=== PATIENT | female | born 1985 | race Native Hawaiian/Other Pacific Islander ===

== ENCOUNTER 2019-03-24 17:42 | Emergency (ER) | payer OTHER ==
[~2019-03-24] VITALS: Ht 167.6 cm; Wt 86.2 kg
[2019-03-24 20:11] VITALS: BP 128/74; TEMP 98.7
== END 2019-03-24 20:11 | disposition home or self-care (01) ==
LOC: ED 17:42
DX: N39.0 Urinary tract infection, site not specified (principal); M54.41 Lumbago with sciatica, right side; F15.10 Other stimulant abuse, uncomplicated; F12.10 Cannabis abuse, uncomplicated
CPT/HCPCS: 80307; 81000; 81025; 87086; 87088; 96372; 99283; J1885

== ENCOUNTER 2019-06-15 08:18 | Emergency (ER) | payer OTHER ==
[~2019-06-15] VITALS: Ht 167.6 cm; Wt 86.2 kg
[2019-06-15 08:20] VITALS: TEMP 97.9
[2019-06-15 09:45] VITALS: BP 114/82
== END 2019-06-15 09:46 | disposition home or self-care (01) ==
LOC: ED 08:18
DX: R07.89 Other chest pain (principal); N39.0 Urinary tract infection, site not specified; W22.8XXA Striking against or struck by other objects, initial encounter; Y93.55 Activity, bike riding; Y92.89 Other specified places as the place of occurrence of the external cause
CPT/HCPCS: 80307; 81000; 81025; 87086; 87088; 96372; 99283; J1885

== ENCOUNTER 2019-07-10 18:36 | Emergency (ER) | payer OTHER ==
[~2019-07-10] VITALS: Ht 157.5 cm; Wt 86.2 kg
[2019-07-10 20:24] LABS: PLATELET COUNT 326 K/uL (152-353)
[2019-07-10 20:29] LABS: POTASSIUM 4.3 mmol/L (3.6-5.2)
[2019-07-10 23:58] VITALS: BP 108/62; TEMP 98.2
== END 2019-07-10 23:58 | disposition home or self-care (01) ==
LOC: ED 18:36
PROVIDERS: Emergency Medicine
DX: K52.89 Other specified noninfective gastroenteritis and colitis (principal); N39.0 Urinary tract infection, site not specified; F12.10 Cannabis abuse, uncomplicated; F15.10 Other stimulant abuse, uncomplicated
CPT/HCPCS: 36415; 80053; 80307; 81000; 81025; 82150; 83690; 85027; 87086; 87088; 87502; 87651; 96361; 96374; 99284; J1885; J2405

== ENCOUNTER 2019-10-30 10:42 | Outpatient (CLI) | payer OTHER | END 2019-10-30 22:45 | disposition home or self-care (01) | LOC: RAD 10:42 | DX: L03.011 Cellulitis of right finger (principal) ==

== ENCOUNTER 2020-01-24 08:56 | Emergency (ER) | payer OTHER ==
[~2020-01-24] VITALS: Ht 157.5 cm; Wt 81.2 kg
[2020-01-24 09:56] VITALS: BP 122/90; TEMP 98.7
== END 2020-01-24 10:00 | disposition home or self-care (01) ==
LOC: ED 08:56
DX: M54.12 Radiculopathy, cervical region (principal); W86.0XXA Exposure to domestic wiring and appliances, initial encounter; Y92.89 Other specified places as the place of occurrence of the external cause
CPT/HCPCS: 96372; 99283; J1885

== ENCOUNTER 2020-02-02 18:52 | Emergency (ER) | payer OTHER ==
[~2020-02-02] VITALS: Ht 157.5 cm; Wt 81.2 kg
[2020-02-02 20:08] LABS: PLATELET COUNT 400 K/uL (152-353)
[2020-02-02 20:36] LABS: POTASSIUM 4.6 mmol/L (3.6-5.2); SODIUM 139 mmol/L (136-145)
[2020-02-02 20:47] VITALS: BP 138/88; TEMP 98.7
== END 2020-02-02 20:53 | disposition home or self-care (01) ==
LOC: ED 18:52
PROVIDERS: Family Medicine
DX: F41.8 Other specified anxiety disorders (principal)
CPT/HCPCS: 36415; 80053; 82550; 82553; 83605; 84484; 85027; 93005; 99283

== ENCOUNTER 2020-08-25 22:52 | Emergency (ER) | payer OTHER ==
[~2020-08-25] VITALS: Ht 157.5 cm; Wt 86.2 kg
[2020-08-26 02:36] VITALS: BP 118/73; TEMP 5
== END 2020-08-26 02:33 | disposition home or self-care (01) ==
LOC: ED 22:52
DX: S16.1XXA Strain of muscle, fascia and tendon at neck level, initial encounter (principal); V49.40XA Driver injured in collision with unspecified motor vehicles in traffic accident, initial encounter; Y92.89 Other specified places as the place of occurrence of the external cause
CPT/HCPCS: 96372; 99283; J1885

== ENCOUNTER 2021-12-11 13:33 | Emergency (ER) | payer OTHER ==
[~2021-12-11] VITALS: Ht 157.5 cm; Wt 87.1 kg
[2021-12-11 13:35] VITALS: TEMP 98.8
[2021-12-11 14:35] LABS: PLATELET COUNT 292 K/uL (152-353)
[2021-12-11 14:38] LABS: POTASSIUM 3.5 mmol/L (3.6-5.2)
[2021-12-11 14:40] LABS: PARTIAL THROMBOPLASTIN TIME 25.1 SECONDS (24.5-33.6)
[2021-12-11 16:41] VITALS: BP 108/60
== END 2021-12-11 16:43 | disposition short-term general hospital (02) ==
LOC: ED 13:33
PROVIDERS: Hospitalist
DX: O42.912 Preterm premature rupture of membranes, unspecified as to length of time between rupture and onset of labor, second trimester (principal); Z3A.16 16 weeks gestation of pregnancy; Z11.52 Encounter for screening for COVID-19
CPT/HCPCS: 36415; 80053; 80307; 80320; 81000; 84702; 85027; 85610; 85730; 87086; 87088; 87635; 96365; 96366; 96375; 99284; J2270; J2405; J2543; J3475; U0003

== ENCOUNTER 2022-01-17 21:56 | Emergency (ER) | payer OTHER ==
[~2022-01-17] VITALS: Ht 157.5 cm; Wt 88.9 kg
[2022-01-17 22:00] VITALS: BP 136/84; TEMP 98.9
== END 2022-01-17 22:18 | disposition left against medical advice (07) ==
LOC: ED 21:56
DX: S29.8XXA Other specified injuries of thorax, initial encounter (principal); W01.198A Fall on same level from slipping, tripping and stumbling with subsequent striking against other object, initial encounter; Y93.02 Activity, running; Y92.821 Forest as the place of occurrence of the external cause; Z53.29 Procedure and treatment not carried out because of patient's decision for other reasons
CPT/HCPCS: 99282

== ENCOUNTER 2022-02-09 15:09 | Emergency (ER) | payer OTHER ==
[~2022-02-09] VITALS: Ht 157.5 cm; Wt 88.9 kg
[2022-02-09 16:45] VITALS: BP 121/73; TEMP 98
== END 2022-02-09 16:45 | disposition home or self-care (01) ==
LOC: ED 15:09
DX: S81.841A Puncture wound with foreign body, right lower leg, initial encounter (principal); W34.010A Accidental discharge of airgun, initial encounter; Y92.89 Other specified places as the place of occurrence of the external cause; Z98.890 Other specified postprocedural states
CPT/HCPCS: 96372; 99282; J0696